=== PATIENT | male | born 1985 | race Caucasian/White ===

== ENCOUNTER 2018-03-13 18:35 | Emergency (ER) | payer MEDICAID ==
[~2018-03-13] VITALS: Ht 175.3 cm; Wt 79.0 kg
[2018-03-13 18:38] VITALS: BP 154/102
== END 2018-03-13 19:17 | disposition left against medical advice (07) ==
LOC: ED 19:10
DX: R40.4 Transient alteration of awareness (principal); R56.9 Unspecified convulsions; F17.200 Nicotine dependence, unspecified, uncomplicated; F12.10 Cannabis abuse, uncomplicated
CPT/HCPCS: 99283

== ENCOUNTER 2018-12-18 02:59 | Emergency (ER) | payer MEDICAID, OTHER ==
[~2018-12-18] VITALS: Ht 175.3 cm; Wt 73.0 kg
[2018-12-18] MEDS ORDERED: METHOCARBAMOL 750 MG TABLET PO ONE (03:30)
[2018-12-18] MEDS ORDERED: KETOROLAC 30 MG/1 ML IM ONE (03:30)
[2018-12-18] MEDS ORDERED: KETOROLAC 30 MG/1 ML ONE (03:37)
[2018-12-18] MEDS ORDERED: METHOCARBAMOL 750 MG TABLET ONE (03:37)
[2018-12-18 03:55] VITALS: BP 131/92
== END 2018-12-18 03:58 | disposition home or self-care (01) ==
LOC: ED 03:36
DX: M54.41 Lumbago with sciatica, right side (principal); F15.10 Other stimulant abuse, uncomplicated; F17.210 Nicotine dependence, cigarettes, uncomplicated
CPT/HCPCS: 96372; 99283; J1885

== ENCOUNTER 2020-06-19 15:19 | Emergency (ER) | payer MEDICAID ==
[~2020-06-19] VITALS: Ht 177.8 cm; Wt 70.1 kg
[2020-06-19 15:44] VITALS: BP 186/115
--- NOTE | 2020-06-19 16:04 | NUR ---
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
--- NOTE | 2020-06-19 16:21 | NUR ---
INTRODUCED MYSELF IN ROOM, PATIENT WITH GIRLFRIEND NEITHER MASKED. ASKED POLITELY IF GUEST CAN WAIT IN LOBBY SINCE HE IS IN OUR C19 RULE OUT SECTION AND IT'S A CONTAGIOUS VIRUS, HE REFUSED AND SHE REFUSED. HE THEN SAID HE DIDN'T WANT TO BE HERE ANYWAY AND THEY LEFT AMA BEFORE I COULD EVEN BRING AMA PAPERWORK BACK TO SIGN. GONE.
== END 2020-06-19 16:25 | disposition left against medical advice (07) ==
LOC: ED 16:19
DX: R06.2 Wheezing (principal); R05 Cough; R94.31 Abnormal electrocardiogram [ECG] [EKG]; Z53.21 Procedure and treatment not carried out due to patient leaving prior to being seen by health care provider
CPT/HCPCS: 93005; 99283